=== PATIENT | female | born 1970 | race Caucasian/White ===

== ENCOUNTER 2022-06-24 00:37 | Day surgery (SDC) | payer BC ==
[~2022-06-24 00:37] MED LIST: GABA300 PO; NORT10 PO; RENFLEXIS100 M1 IV; Robaxin750 MG
== END 2022-06-24 08:28 | disposition home or self-care (01) ==
LOC: ATC 00:37
DX: M35.2 Behcet's disease (principal)
CPT/HCPCS: J7050; Q5103

== ENCOUNTER → 2022-07-08 | Outpatient (CLI) | payer BC ==
[2022-07-08 19:00] LABS: CHOL/HDL RATIO 3.8; Cholesterol 240 mg/dL (50-200); HDL Cholesterol 64 mg/dL (>39); LDL/HDL RATIO 2.3; Low Density Lipoprotein Chol 148 mg/dL (0-110); Triglycerides 140 mg/dL (30-160); Very Low Density Lipoprot Chol 28 mg/dL (6-32)
[2022-07-12 15:11] LABS: HPV 16 Negative (Negative); HPV 18 Negative (Negative); HPV OTHER HR TYPES Negative (Negative)
== END | disposition home or self-care (01) ==
LOC: LAB SHORT 14:53
PROVIDERS: Family Medicine
DX: Z13.6 Encounter for screening for cardiovascular disorders (principal); Z11.59 Encounter for screening for other viral diseases
CPT/HCPCS: 80061; 86803; 87624; G0145

== ENCOUNTER 2022-12-09 03:20 | Day surgery (SDC) | payer BC ==
[2022-12-09 14:51] VITALS: BP 111/72
== END 2022-12-09 16:15 | disposition home or self-care (01) ==
LOC: ATC 03:20
DX: M35.2 Behcet's disease (principal); Z88.0 Allergy status to penicillin; Z88.8 Allergy status to other drugs, medicaments and biological substances; M25.542 Pain in joints of left hand
CPT/HCPCS: 96413; J7050; Q5103

== ENCOUNTER 2023-02-03 03:04 | Day surgery (SDC) | payer BC ==
[2023-02-03 07:57] VITALS: BP 124/90
== END 2023-02-03 09:05 | disposition home or self-care (01) ==
LOC: ATC 03:04
DX: M35.2 Behcet's disease (principal); Z88.0 Allergy status to penicillin; Z88.8 Allergy status to other drugs, medicaments and biological substances; Z88.9 Allergy status to unspecified drugs, medicaments and biological substances
CPT/HCPCS: 96413; J7050; Q5103

== ENCOUNTER 2023-03-31 02:26 | Day surgery (SDC) | payer BC ==
[2023-03-31 14:37] VITALS: BP 115/77
== END 2023-03-31 15:49 | disposition home or self-care (01) ==
LOC: ATC 02:26
DX: M35.2 Behcet's disease (principal); Z88.0 Allergy status to penicillin; Z91.030 Bee allergy status
CPT/HCPCS: 96413; J7050; Q5103

== ENCOUNTER 2023-05-26 02:08 | Day surgery (SDC) | payer BC ==
[~2023-05-26] VITALS: Wt 54.0 kg
[2023-05-26 14:45] VITALS: BP 133/59
== END 2023-05-26 06:05 | disposition home or self-care (01) ==
LOC: ATC 02:08
DX: M35.2 Behcet's disease (principal); Z88.0 Allergy status to penicillin; Z88.8 Allergy status to other drugs, medicaments and biological substances; Z91.030 Bee allergy status
CPT/HCPCS: 96413; J7050; Q5103

== ENCOUNTER 2023-11-10 03:20 | Day surgery (SDC) | payer BC ==
[~2023-11-10 03:20] MED LIST changes: +ONDA4ODT MM; +TRAZ50 PO
[2023-11-10 14:59] VITALS: BP 132/65
[2023-11-10] MEDS ORDERED: Infliximab-DYYB 300 MG in NS 250 ML IV SCH (15:15)
[2023-11-10] MEDS ORDERED: OMEP20ER (17:52)
== END 2023-11-10 16:21 | disposition home or self-care (01) ==
LOC: ATC 03:20
DX: M35.2 Behcet's disease (principal); Z88.0 Allergy status to penicillin; Z88.8 Allergy status to other drugs, medicaments and biological substances
CPT/HCPCS: 96413; J7050; Q5103

== ENCOUNTER 2024-01-05 03:14 | Day surgery (SDC) | payer BC ==
[~2024-01-05 03:14] MED LIST changes: +OMEP20ER
[2024-01-05 15:01] VITALS: BP 114/49
[2024-01-05] MEDS ORDERED: Infliximab-DYYB 300 MG in NS 250 ML IV SCH (15:15)
== END 2024-01-05 16:21 | disposition home or self-care (01) ==
LOC: ATC 03:14
DX: M35.2 Behcet's disease (principal)
CPT/HCPCS: 96413; J7050; Q5103

== ENCOUNTER 2024-02-16 03:59 | Day surgery (SDC) | payer BC ==
[~2024-02-16] VITALS: Wt 49.7 kg
[2024-02-16 14:19] VITALS: BP 131/63
[2024-02-16] MEDS ORDERED: Infliximab-DYYB 300 MG in NS 250 ML IV SCH (14:35)
== END 2024-02-16 15:45 | disposition home or self-care (01) ==
LOC: ATC 03:59
DX: M35.2 Behcet's disease (principal); Z79.899 Other long term (current) drug therapy; Z88.0 Allergy status to penicillin; Z88.8 Allergy status to other drugs, medicaments and biological substances; Z91.030 Bee allergy status
CPT/HCPCS: 96413; J7050; Q5103

== ENCOUNTER 2024-05-10 06:56 | Day surgery (SDC) | payer BC ==
[~2024-05-10] VITALS: Wt 50.4 kg
[2024-05-10 08:05] VITALS: BP 150/69
[2024-05-10] MEDS ORDERED: Infliximab-DYYB 300 MG in NS 250 ML IV SCH (08:25)
== END 2024-05-10 09:22 | disposition home or self-care (01) ==
LOC: ATC 06:56
DX: M35.2 Behcet's disease (principal); Z79.1 Long term (current) use of non-steroidal anti-inflammatories (NSAID); Z79.899 Other long term (current) drug therapy; Z88.0 Allergy status to penicillin; Z88.8 Allergy status to other drugs, medicaments and biological substances; Z91.030 Bee allergy status; Z86.16 Personal history of COVID-19
CPT/HCPCS: 96413; J7050; Q5103

== ENCOUNTER 2024-06-11 08:25 | Day surgery (SDC) | payer BC ==
[2024-06-11 08:01] VITALS: BP 144/66
[~2024-06-11 08:25] MED LIST changes: +Cosyntropin 0.25 MG / ML 1ML Vial IV SCH
== END 2024-06-11 08:55 | disposition home or self-care (01) ==
LOC: ATC 08:25
DX: I95.1 Orthostatic hypotension (principal); E78.5 Hyperlipidemia, unspecified; M35.2 Behcet's disease; Z79.899 Other long term (current) drug therapy; Z88.0 Allergy status to penicillin; Z88.8 Allergy status to other drugs, medicaments and biological substances; Z91.030 Bee allergy status
CPT/HCPCS: 80400; 82533; 96374; J0834

== ENCOUNTER 2024-06-21 03:27 | Day surgery (SDC) | payer BC ==
[~2024-06-21 03:27] MED LIST changes: -Cosyntropin 0.25 MG / ML 1ML Vial IV SCH
[2024-06-21 10:10] VITALS: BP 140/53
[2024-06-21] MEDS ORDERED: Infliximab-DYYB 300 MG in NS 250 ML IV SCH (10:30)
[2024-06-21 11:06] LABS: BASOPHILS ABSOLUTE AUTO 0.06 K/mm3 (0.00-0.23); BASOPHILS PERCENT AUTO 1 % (0-2); EOSINOPHILS ABSOLUTE AUTO 0.04 K/mm3 (0.00-0.68); EOSINOPHILS PERCENT AUTO 0 % (0-6); Hematocrit 44.7 % (33.0-51.0); Hemoglobin 14.8 g/dL (11.5-16.0); IMMATURE GRAN ABSOLUTE AUTO 0.01 K/mm3 (0.00-0.10); IMMATURE GRAN PERCENT AUTO 0 % (0-1); LYMPHOCYTES PERCENT AUTO 29 % (21-46); MONOCYTES ABSOLUTE AUTO 0.96 K/mm3 (0.16-1.47); MONOCYTES PERCENT AUTO 11 % (4-13); Mean Corpuscular HGB 28.7 pg (26.0-34.0); Mean Corpuscular HGB Conc 33.1 g/dL (31.5-36.5); Mean Corpuscular Volume 87 fL (80-100); Mean Platelet Volume 10.1 fL (9.1-12.4); NEUTROPHILS PERCENT AUTO 59 % (41-73); Platelet Count 321 K/mm3 (150-400); RDW Coefficient Variation 13.3 % (11.7-14.2); RDW Standard Deviation 42.7 fL (35.1-46.3); Red Blood Cell Count 5.16 M/mm3 (3.80-5.20); White Blood Cell Count 9.17 K/mm3 (4.00-11.30)
[2024-06-21 12:00] LABS: Albumin, Blood 3.8 g/dL (3.4-5.0); Albumin/Globulin Ratio 1.1 (0.8-1.8); Bilirubin, Total 0.4 mg/dL (0.1-1.0); Bun/Creatinine Ratio 13.8 (12.0-20.0); Calcium, Blood 9.5 mg/dL (8.5-10.1); Creatinine, Blood 0.73 mg/dL (0.40-1.00); Globulin, Blood 3.6 g/dL (2.2-4.0); Total Protein, Blood 7.4 g/dL (6.4-8.2)
[2024-06-24 14:47] LABS: QUANTIFERON MITOGEN MINUS NIL 9.97 IU/mL; QUANTIFERON NIL 0.03 IU/mL; QUANTIFERON PLUS TB1 MINUS NIL 0.01 IU/mL (<=0.34); QUANTIFERON PLUS TB2 MINUS NIL 0.02 IU/mL (<=0.34)
--- NOTE | 2024-06-24 18:23 | NUR ---
Lab results (TB and CRP) results faxed to Dr. Corona's office.
== END 2024-06-21 11:34 | disposition home or self-care (01) ==
LOC: ATC 03:27
PROVIDERS: Internal Medicine
DX: M35.2 Behcet's disease (principal); D84.81 Immunodeficiency due to conditions classified elsewhere; Z51.81 Encounter for therapeutic drug level monitoring; Z91.030 Bee allergy status; Z88.0 Allergy status to penicillin; Z88.8 Allergy status to other drugs, medicaments and biological substances; Z79.899 Other long term (current) drug therapy
CPT/HCPCS: 80053; 85025; 85651; 86140; 86480; 96413; J7050; Q5103

== ENCOUNTER 2024-08-02 03:43 | Day surgery (SDC) | payer BC ==
[~2024-08-02] VITALS: Wt 50.8 kg
[2024-08-02 10:14] VITALS: BP 150/62
[2024-08-02] MEDS ORDERED: Infliximab-DYYB 300 MG in NS 250 ML IV SCH (10:20)
[2024-08-02] MEDS ORDERED: PRED5 PO (10:48)
[2024-08-02] MEDS ORDERED: Chantix1 MG PO (10:49)
== END 2024-08-02 11:12 | disposition home or self-care (01) ==
LOC: ATC 03:43
DX: M35.2 Behcet's disease (principal); Z88.0 Allergy status to penicillin; Z88.8 Allergy status to other drugs, medicaments and biological substances; Z79.899 Other long term (current) drug therapy
CPT/HCPCS: 96413; J7050; Q5103

== ENCOUNTER 2024-12-06 03:03 | Day surgery (SDC) | payer BC ==
[~2024-12-06] VITALS: Wt 57.0 kg
[~2024-12-06 03:03] MED LIST changes: +Chantix1 MG PO; +PRED5 PO
[2024-12-06 10:10] VITALS: BP 128/62
== END 2024-12-06 11:18 | disposition home or self-care (01) ==
LOC: ATC 03:03
DX: M35.2 Behcet's disease (principal); H53.8 Other visual disturbances; Z88.0 Allergy status to penicillin; Z88.8 Allergy status to other drugs, medicaments and biological substances; Z91.030 Bee allergy status; Z79.899 Other long term (current) drug therapy
CPT/HCPCS: 96413; J7050; Q5103

== ENCOUNTER 2025-01-17 03:47 | Day surgery (SDC) | payer BC ==
[~2025-01-17] VITALS: Wt 56.8 kg
[2025-01-17 08:05] VITALS: BP 115/47
[2025-01-17] MEDS ORDERED: TRAM50 PO (08:07)
[2025-01-17] MEDS ORDERED: PRAZOSIN HCL1 M2 PO (08:07)
[2025-01-17] MEDS ORDERED: DECARA1250 MC1 PO (08:09)
[2025-01-17] MEDS ORDERED: LORAZEPAM0.5 MG PO (08:09)
[2025-01-17] MEDS ORDERED: LOW DOSE ASPIRI81 M1 PO (08:11)
[2025-01-17] MEDS ORDERED: SENNA LAXATIVE8.6 MG PO (08:11)
[2025-01-17 10:23] LABS: BASOPHILS ABSOLUTE AUTO 0.06 K/mm3 (0.00-0.23); BASOPHILS PERCENT AUTO 1 % (0-2); EOSINOPHILS ABSOLUTE AUTO 0.03 K/mm3 (0.00-0.68); EOSINOPHILS PERCENT AUTO 0 % (0-6); Hematocrit 43.9 % (33.0-51.0); Hemoglobin 14.6 g/dL (11.5-16.0); IMMATURE GRAN ABSOLUTE AUTO 0.03 K/mm3 (0.00-0.10); IMMATURE GRAN PERCENT AUTO 0 % (0-1); LYMPHOCYTES ABSOLUTE AUTO 3.59 K/mm3 (0.84-5.20); LYMPHOCYTES PERCENT AUTO 34 % (21-46); MONOCYTES ABSOLUTE AUTO 1.28 K/mm3 (0.16-1.47); MONOCYTES PERCENT AUTO 12 % (4-13); Mean Corpuscular HGB Conc 33.3 g/dL (31.5-36.5); Mean Corpuscular Volume 88 fL (80-100); NEUTROPHILS ABSOLUTE AUTO 5.72 K/mm3 (1.96-9.15); NEUTROPHILS PERCENT AUTO 53 % (41-73); NRBC ABSOLUTE 0.00 K/mm3 (0.00-0.02); NRBC Auto 0.0 /100 WBC (0.0-0.2); Platelet Count 317 K/mm3 (150-400); RDW Coefficient Variation 13.4 % (11.7-14.2); RDW Standard Deviation 43.5 fL (35.1-46.3)
[2025-01-17 11:16] LABS: Alanine Aminotransfer (ALT/SGP 16 U/L (12-78); Albumin, Blood 3.5 g/dL (3.4-5.0); Albumin/Globulin Ratio 1.0 (0.8-1.8); Anion Gap 12 mmol/L (3-11); Aspartate Aminotrans (AST/SGOT 16 U/L (12-37); Bilirubin, Total 0.3 mg/dL (0.1-1.0); Blood Urea Nitrogen 10 mg/dL (8-24); CHOL/HDL RATIO 3.6; CO2, Blood 22 mmol/L (21-32); Calcium, Blood 8.6 mg/dL (8.5-10.1); Chloride, Blood 106 mmol/L (98-108); Cholesterol 233 mg/dL (50-200); Creatinine, Blood 0.76 mg/dL (0.40-1.00); Ferritin, Serum 29 ng/mL (8-252); Globulin, Blood 3.6 g/dL (2.2-4.0); Glucose, Blood 94 mg/dL (70-99); HDL Cholesterol 64 mg/dL (>39); LDL/HDL RATIO 2.1; Low Density Lipoprotein Chol 137 mg/dL (0-110); Potassium, Blood 3.7 mmol/L (3.5-5.5); Sodium, Blood 136 mmol/L (136-145); Thyroid Stimulating Hormone 2.000 uIU/mL (0.360-4.800); Total Iron Binding Capacity 290 ug/dL (250-450); Total Protein, Blood 7.1 g/dL (6.4-8.2); Triglycerides 161 mg/dL (30-160); Very Low Density Lipoprot Chol 32 mg/dL (6-32)
[2025-01-19 06:01] LABS: VITAMIN D,1,25-DIHYDROXY 63.1 pg/mL (19.9-79.3)
[2025-01-19 16:12] LABS: HIV 1,2 COMBO ANTIGEN/ANTIBODY Negative (Negative)
== END 2025-01-17 09:05 | disposition home or self-care (01) ==
LOC: ATC 03:47
PROVIDERS: General Practice
DX: M35.2 Behcet's disease (principal); Z88.0 Allergy status to penicillin; Z91.030 Bee allergy status; Z88.8 Allergy status to other drugs, medicaments and biological substances; Z79.899 Other long term (current) drug therapy
CPT/HCPCS: 80053; 80061; 82652; 82728; 83540; 83550; 84443; 85025; 87389; 96413; J7050; Q5103

== ENCOUNTER 2025-02-28 07:51 | Day surgery (SDC) | payer BC ==
[2025-02-28 07:41] VITALS: BP 133/62
[~2025-02-28 07:51] MED LIST changes: +DECARA1250 MC1 PO; +LORAZEPAM0.5 MG PO; +LOW DOSE ASPIRI81 M1 PO; +PRAZOSIN HCL1 M2 PO; +SENNA LAXATIVE8.6 MG PO; +TRAM50 PO
[2025-02-28] MEDS ORDERED: DOXY100 PO (08:30)
== END 2025-02-28 08:45 | disposition home or self-care (01) ==
LOC: ATC 07:51
DX: M35.2 Behcet's disease (principal); D84.81 Immunodeficiency due to conditions classified elsewhere
CPT/HCPCS: 96413; J7050; Q5103

== ENCOUNTER 2025-04-11 01:04 | Day surgery (SDC) | payer BC ==
[~2025-04-11] VITALS: Wt 58.2 kg
[~2025-04-11 01:04] MED LIST changes: +DOXY100 PO
[2025-04-11 09:10] VITALS: BP 150/72
[2025-04-11] MEDS ORDERED: Infliximab-DYYB 350 MG in NS 250 ML IV SCH (09:30)
[2025-04-11 09:50] LABS: BASOPHILS ABSOLUTE AUTO 0.04 K/mm3 (0.00-0.23); BASOPHILS PERCENT AUTO 1 % (0-2); EOSINOPHILS ABSOLUTE AUTO 0.07 K/mm3 (0.00-0.68); EOSINOPHILS PERCENT AUTO 1 % (0-6); Hematocrit 41.4 % (33.0-51.0); Hemoglobin 13.6 g/dL (11.5-16.0); IMMATURE GRAN ABSOLUTE AUTO 0.01 K/mm3 (0.00-0.10); IMMATURE GRAN PERCENT AUTO 0 % (0-1); LYMPHOCYTES ABSOLUTE AUTO 2.95 K/mm3 (0.84-5.20); LYMPHOCYTES PERCENT AUTO 49 % (21-46); MONOCYTES ABSOLUTE AUTO 0.65 K/mm3 (0.16-1.47); MONOCYTES PERCENT AUTO 11 % (4-13); Mean Corpuscular HGB Conc 32.9 g/dL (31.5-36.5); Mean Corpuscular Volume 88 fL (80-100); NEUTROPHILS ABSOLUTE AUTO 2.28 K/mm3 (1.96-9.15); NEUTROPHILS PERCENT AUTO 38 % (41-73); NRBC ABSOLUTE 0.00 K/mm3 (0.00-0.02); NRBC Auto 0.0 /100 WBC (0.0-0.2); Platelet Count 274 K/mm3 (150-400); RDW Coefficient Variation 13.9 % (11.7-14.2); RDW Standard Deviation 44.9 fL (35.1-46.3)
[2025-04-11 10:10] LABS: Alanine Aminotransfer (ALT/SGP 22 U/L (12-78); Albumin, Blood 3.2 g/dL (3.4-5.0); Albumin/Globulin Ratio 0.9 (0.8-1.8); Anion Gap 8 mmol/L (3-11); Aspartate Aminotrans (AST/SGOT 25 U/L (12-37); Bilirubin, Total 0.4 mg/dL (0.1-1.0); Blood Urea Nitrogen 14 mg/dL (8-24); C-REACTIVE PROTEIN, EXT RANGE <0.290 mg/dL (0.000-0.300); CO2, Blood 24 mmol/L (21-32); Calcium, Blood 8.9 mg/dL (8.5-10.1); Chloride, Blood 111 mmol/L (98-108); Creatinine, Blood 0.94 mg/dL (0.40-1.00); Globulin, Blood 3.4 g/dL (2.2-4.0); Glucose, Blood 114 mg/dL (70-99); Potassium, Blood 3.8 mmol/L (3.5-5.5); Sodium, Blood 139 mmol/L (136-145); Total Protein, Blood 6.6 g/dL (6.4-8.2)
== END 2025-04-11 10:18 | disposition home or self-care (01) ==
LOC: ATC 01:04
PROVIDERS: Internal Medicine
DX: M35.2 Behcet's disease (principal); Z88.8 Allergy status to other drugs, medicaments and biological substances; Z88.0 Allergy status to penicillin; Z91.030 Bee allergy status; Z79.82 Long term (current) use of aspirin; Z79.899 Other long term (current) drug therapy; Z87.891 Personal history of nicotine dependence
CPT/HCPCS: 36591; 80053; 85025; 85651; 86140; 96413; J7050; Q5103